=== PATIENT | female | born 1945 | race Caucasian/White ===

== ENCOUNTER → 2017-01-10 | Outpatient (CLI) | payer OTHER, MEDICARE ==
[~2017-01-10] MED LIST: ALL DAY ALLERGY10 M2 PO; BENADRYL25 MG PO; CAL-CITRATE PL1 EACH PO; CALCIUM 600 +1 EAC1 PO; CENTRUM SILVER1 EAC4 PO; COUMADIN 5 MG TA5 M1; FIBER CHOICE1 EACH PO; FISH OIL 1,0001 EAC8 PO; GLUCOPHAGE XR500 MG PO; GLUCOSAMINE CH1 EAC7 PO; HYDROCODON-ACE1 EAC5; HYDROCODON-ACE1 EAC5 PO; HYDROCODON-ACE1 EAC8 PO; LOPID600 MG PO; LOPRESSOR25 PO; MAG DELAY64 MG PO; NEURONTIN 300300 M1 PO; NEURONTIN600 MG PO; NORVASC 5 MG TAB5 MG PO; OMEPRAZOLE40 MG PO; PREDNISONE 10 M10 MG PO; PROZAC 20 MG20 M1 PO; REMERON15 MG PO; SIMVASTATIN40 MG PO; SUPER B COMPLE1 EAC2 PO; TYLENOL P.M. E1 EAC3; VICTOZA0.6 MG/0.1 SUBQ
== END ==
LOC: RAD 09:03
DX: Z12.31 Encounter for screening mammogram for malignant neoplasm of breast (principal)

== ENCOUNTER 2017-03-29 10:37 | Emergency (ER) | payer OTHER, MEDICARE ==
[~2017-03-29] VITALS: Ht 157.5 cm; Wt 108.0 kg
--- NOTE | ~2017-03-29 | EKG ---
[address] [place] [address] ELECTROCARDIOGRAM REPORT Name: SENTHIL MOLINA [id number] Admission: 03/29/17 Attend Phys: Discharge: Date of : 41 Report #: [id number] THIS REPORT FOR: //name// [facility] ED Test Date: 2017-03-29 Test Time: 10:42:58 Pat Name: SENTHIL MOLINA Department: Room: Gender: F Clinical Auditor: [facility] : 1945 Requested By: Jesus Peguero Order Number: [id number] MD: Maikel Mckeon Measurements Intervals Ross Rate: 74 P: 22 ID: 192 QRS: -63 QRSD: 117 T: 14 QT: 404 QTc: 449 Interpretive Statements Sinus rhythm Left anterior fascicular block Probable left ventricular hypertrophy Anterior Q waves, possibly due to LVH Electronically Signed On 03-29-2017 13:41:22 CDT by Maikel Mckeon [email or web address] <ELECTRONICALLY SIGNED> By: Maikel Mckeon MD 03/29/17 1341 1042 [id number] MD HANS Dewey
[2017-03-29 11:02] LABS: ABSOLUTE NEUTROPHILS 3.9 thou/uL (1.4-8.2); BASOPHILS 0.5 % (0.0-2.0); EOSINOPHILS 2.8 % (0.0-3.0); HEMATOCRIT 43.2 % (37.0-47.0); HEMOGLOBIN 14.7 gm/dL (12.0-15.0); LYMPHOCYTES 23.8 % (24.0-44.0); MCV 93.9 fL (80.0-100.0); MONOCYTES 9.8 % (1.0-8.0); PLATELET COUNT 298 thou/uL (150-400); POLYS 63.1 % (36.0-66.0); WBC 6.2 thou/uL (4.0-11.0)
[2017-03-29 11:03] LABS: MANUAL DIFF NO
[2017-03-29 11:15] LABS: ANION GAP 7 mmol/L (7-16); BUN 11 mg/dL (7-18); CALCIUM 9.9 mg/dL (8.5-10.1); CHLORIDE 102 mmol/L (98-107); CO2 28 mmol/L (21-32); CREATININE 0.8 mg/dL (0.6-1.0); GLUCOSE 179 mg/dL (74-106); POTASSIUM 3.9 mmol/L (3.5-5.1); SODIUM 137 mmol/L (136-145)
[2017-03-29 11:23] LABS: TROPONIN-I < 0.04 ng/mL (<0.04-0.07)
[2017-03-29] MEDS ORDERED: SYNTHROID25 MCG PO (13:35)
[2017-03-29] MEDS ORDERED: OMEGA 3 500 SO1 EACH PO (13:35)
[2017-03-29] MEDS ORDERED: ASPIRIN81 M2 PO (13:36)
[2017-03-29] MEDS ORDERED: TYLENOL PM EX-1 EACH PO (13:37)
[2017-03-29] MEDS ORDERED: ULTRAM 50MG TAB50 MG PO ×3 (15:00→15:12)
== END 2017-03-29 15:26 | disposition home or self-care (01) ==
LOC: ER 10:37
PROVIDERS: Nurse Practitioner
DX: R07.89 Other chest pain (principal); M19.90 Unspecified osteoarthritis, unspecified site; G47.30 Sleep apnea, unspecified; E78.5 Hyperlipidemia, unspecified; E11.40 Type 2 diabetes mellitus with diabetic neuropathy, unspecified; Z88.8 Allergy status to other drugs, medicaments and biological substances; Z96.641 Presence of right artificial hip joint; Z96.653 Presence of artificial knee joint, bilateral; Z90.49 Acquired absence of other specified parts of digestive tract

== ENCOUNTER → 2017-04-03 | Outpatient (CLI) | payer OTHER, MEDICARE ==
[~2017-04-03] MED LIST changes: +ASPIRIN81 M2 PO; +OMEGA 3 500 SO1 EACH PO; +SYNTHROID25 MCG PO; +TYLENOL PM EX-1 EACH PO; +ULTRAM 50MG TAB50 MG PO
== END ==
LOC: RAD 11:20
DX: J98.11 Atelectasis (principal); R06.00 Dyspnea, unspecified

== ENCOUNTER → 2017-12-07 | Outpatient (CLI) | payer OTHER, MEDICARE ==
[~2017-12-07] MED LIST changes: +COLCHICINE0.6 MG PO; +CRESTOR10 MG PO; +LOPRESSOR50 PO; +VENTOLIN HFA 1818 GM INH; +VITAMIN B122500 MCG PO
== END ==
LOC: RAD 10:53
DX: M47.26 Other spondylosis with radiculopathy, lumbar region (principal); M12.88 Other specific arthropathies, not elsewhere classified, other specified site

== ENCOUNTER → 2018-09-20 | Outpatient (CLI) | payer OTHER, MEDICARE | LOC: RAD 02:49 | DX: R92.8 Other abnormal and inconclusive findings on diagnostic imaging of breast (principal) ==

== ENCOUNTER → 2018-11-05 | Outpatient (CLI) | payer OTHER, MEDICARE ==
--- NOTE | 2018-11-06 18:03 | SLE ---
[facility] [place] [address] POLYSOMNOGRAPHY STUDY Name: SENTHIL MOLINA Room #: REG [facility].#: [id number] Admission: 11/05/18 ������������������ Attend Phys: Jonathan Szymanski MD Discharge: ������������������ Date of : 41 Report #: [id number] THIS REPORT FOR: //name// CC: Jonathan Varela MD DATE OF SERVICE: 11/05/2018 SLEEP STUDY ATTENDING PHYSICIAN: Dr. Gorge Varela. The patient is a 73-year-old who weighs 220 pounds with a BMI of 40. The patient's Cutler score was 7. The patient underwent a split night study performed at [facility]. During the night study, the patient spent 461 minutes in bed and slept for 286 minutes with a low sleep efficiency of 62%. Sleep latency was 28 minutes with a REM latency of 336 minutes. Overall, sleep architecture showed increased stage 1 sleep, normal stage 2 sleep, absent N3 sleep and slightly reduced REM sleep, which was 14% of the total sleep time. During the initial diagnostic portion of the study, the patient slept for 95 minutes. During that time, the patient had no obstructive mixed or central apneas, but there were 37 hypopneas. The patient's apnea hypopnea index was 23 per hour. REM sleep was not observed. Supine AHI was 24 per hour. EKG monitoring revealed average heart rate of 66 beats per minute, occasional PVCs seen. No sustained arrhythmias observed. PLMS were seen at an index of 34 per hour and 10 per hour caused EEG arousals. Nocturnal oximetry study revealed an average oxygen saturation 89% with a lowest of 79%. 74 minutes were spent in oxygen saturation of less than 89%. The patient met the criteria for CPAP initiation. It was started at 5 cm of water and titrated up to 15 cm of water. At the final pressure, the patient slept for 67 minutes. The patient had no REM sleep, but supine sleep was observed. The patient's AHI was reduced to 0 per hour and oxygen saturation remained above 91%. IMPRESSION: 1. Moderate sleep apnea-hypopnea syndrome at an AHI of 23 per hour. Absence of REM sleep during the diagnostic portion can underestimate the severity of sleep [address] [address] POLYSOMNOGRAPHY STUDY Name: SENTHIL MOLINA Room #: REG [facility].#: [id number] Admission: 11/05/18 ������������������ Attend Phys: Jonathan Szymanski MD Discharge: ������������������ Date of : 41 Report #: [id number] apnea. 2. Nocturnal hypoxia secondary to obstructive sleep apnea, but resolved with CPAP. 3. Moderate periodic limb movements. RECOMMENDATIONS: 1. CPAP at 15 cm water completely eliminated the patient's sleep apnea and should be used on a nightly basis. 2. Follow up in 4-6 weeks to assess compliance with CPAP and to document clinical improvement. 3. Weight loss is strongly advised. 4. Avoid [employer] depressants. 5. Cautioned regarding driving until symptoms of sleep apnea resolve with the use of CPAP. 6. The patient should also be further evaluated for symptoms of restless legs during the day and if present, it can be treated with dopaminergic agonist agents. ��������������������������������������������� <ELECTRONICALLY SIGNED> ���������������������������������������� By: Jonathan Szymanski MD ��������������������������������������������� 11/06/18 1803 1449 1605 Jonathan Szymanski MD /nt
== END ==
LOC: SLEEPLAB 15:45
DX: G47.33 Obstructive sleep apnea (adult) (pediatric) (principal); R09.02 Hypoxemia; G47.61 Periodic limb movement disorder; G47.00 Insomnia, unspecified; E66.01 Morbid (severe) obesity due to excess calories; Z68.41 Body mass index [BMI] 40.0-44.9, adult; Z99.89 Dependence on other enabling machines and devices

== ENCOUNTER → 2019-04-09 | Outpatient (CLI) | payer OTHER | LOC: RAD 09:31 | DX: R92.2 Inconclusive mammogram (principal) ==

== ENCOUNTER → 2019-04-29 | Outpatient (CLI) | payer OTHER | LOC: RAD 11:27 | DX: M47.816 Spondylosis without myelopathy or radiculopathy, lumbar region (principal); M43.26 Fusion of spine, lumbar region; M48.061 Spinal stenosis, lumbar region without neurogenic claudication; Z98.890 Other specified postprocedural states ==

== ENCOUNTER → 2020-04-13 | Outpatient (CLI) | payer OTHER | LOC: RAD 13:45 | PROVIDERS: ATTEND Neuromusculoskeletal Medicine & OMM | DX: Z12.31 Encounter for screening mammogram for malignant neoplasm of breast (principal) ==

== ENCOUNTER → 2020-07-23 | Outpatient (CLI) | payer OTHER | LOC: CAT 11:06 | PROVIDERS: ATTEND Neuromusculoskeletal Medicine & OMM | DX: I63.81 Other cerebral infarction due to occlusion or stenosis of small artery (principal); H53.8 Other visual disturbances ==

== ENCOUNTER 2021-01-27 12:06 | Emergency (ER) | payer OTHER ==
[~2021-01-27] VITALS: Ht 157.5 cm; Wt 96.2 kg
--- NOTE | ~2021-01-27 | EMS ---
[address] [address] EMS Patient Care Report Name: SENTHIL MOLINA Room #: REG Fan#: [id number] Admission: 01/27/21 Attend Phys: Discharge: Date of : 41 Report #: [id number] THIS REPORT FOR: //name// Report Transmitted: 01/27/2021 12:05 EMS Care Summary [place] [place] Incident [id number] @ 01/27/2021 11:23 Incident [address] [place] [id number] Patient SENTHIL MOLINA Female, 76 Years [id number] Patient Address Patient History Diabetes, Patient Allergies No known allergies, Patient Medications Plavix, Chief Complaint Right hip pain Disposition Transported No Lights/[place] Dispatch Reason Sick Person Transported To [facility] Narrative Medic 36 arrived on scene to find a 76 y/o female Pt seated upright on the edge of her bed complaining of right hip pain. Pt reported that she had fallen into a cabinet the night before and was now having difficulty walking and and moving on her own. No obvious deformities or trauma was noted. Pt was moved to the ambulance using a stair chair and loaded into the ambulance without incident. Pt was then [facility] and care of the patient was turned over [address] [address] EMS Patient Care Report Name: SENTHIL MOLINA Room #: REG [facility]#: [id number] Admission: 01/27/21 Attend Phys: Discharge: Date of : 41 Report #: [id number] to ER staff without incident. M36 placed back in service. Initial Vitals @11:37P: 63,R: 14,BP: 143/85,Pain: 2/10,GCS: 15,Glucose: 137,SpO2: 95,Revised Trauma: 12, @11:47P: 67,R: 16,BP: 160/76,Pain: 2/10,GCS: 15,CO: 4,SpO2: 95,Revised Trauma: 12, Assessments @11:55MENTAL:Time Oriented,Event Oriented,Place Oriented,Person Oriented,SKIN:HEENT:Head/Face: No Abnormalities,Neck/Airway: No Abnormalities,LUNG SOUNDS:General: No Abnormalities,ABDOMEN:General: No Abnormalities,PELVIS//GI:No Abnormalities,EXTREMITIES:Left Arm: No Abnormalities,Right Arm: No Abnormalities,Left Leg: No Abnormalities,Right Leg: No Abnormalities,PULSE:NEURO:No Abnormalities, Impression Injury of Hip Procedures @11:54BLS AssessmentResponse: Unchanged@11:55StairchairResponse: Unchanged Timeline 11:22,Call Received 11:22,Dispatch Notified 11:23,Dispatched 11:24,En Route 11:33,On Scene 11:35,At Patient 11:37,BP: 143/85 M,PULSE: 63,RR: 14 R,SPO2: 95 Ox,ETCO2: ,B,PAIN: 2,GCS: 15, 11:47,BP: 160/76 M,PULSE: 67,RR: 16 R,SPO2: 95 Ox,ETCO2: ,BG: ,PAIN: 2,GCS: 15, 11:53,Depart Scene 11:54,BLS Assessment,Response: Unchanged 11:55,Stairchair,Response: Unchanged 12:02,At Destination 12:18,Call Closed Disclaimer v1.1 Copyright 2020 [facility], [place] This EMS Care Summary contains data elements from the applicable legal record (which may be displayed differently). It is designed to provide pertinent information for the following purposes: continuity of care, clinical quality, and state data reporting. The complete legal record is available to ED staff and administrators of the receiving hospital in [employer]'s Patient Tracker. All data is provided "as is."
[2021-01-27] MEDS ORDERED: NORCO5 PO (14:39)
[2021-01-27 14:40] VITALS: BP 137/63
== END 2021-01-27 14:40 | disposition home or self-care (01) ==
LOC: ER 12:06
DX: M54.5 Low back pain (principal); N28.89 Other specified disorders of kidney and ureter; M25.551 Pain in right hip; M19.90 Unspecified osteoarthritis, unspecified site; E11.9 Type 2 diabetes mellitus without complications; I10 Essential (primary) hypertension; E78.5 Hyperlipidemia, unspecified; Z90.49 Acquired absence of other specified parts of digestive tract; Z88.6 Allergy status to analgesic agent; Z88.1 Allergy status to other antibiotic agents; Z79.2 Long term (current) use of antibiotics; Z79.899 Other long term (current) drug therapy

== ENCOUNTER → 2021-02-08 | Outpatient (CLI) | payer OTHER ==
[~2021-02-08] MED LIST changes: +NORCO5 PO
== END ==
LOC: ULTRA 10:49
PROVIDERS: ATTEND Neuromusculoskeletal Medicine & OMM
DX: N28.1 Cyst of kidney, acquired (principal); N28.89 Other specified disorders of kidney and ureter

== ENCOUNTER → 2021-04-15 | Outpatient (CLI) | payer OTHER | LOC: BC 10:01 | PROVIDERS: ATTEND Neuromusculoskeletal Medicine & OMM | DX: Z12.31 Encounter for screening mammogram for malignant neoplasm of breast (principal) ==